=== PATIENT | male | born 1970 | race Caucasian/White ===

== ENCOUNTER 2023-10-24 15:34 | Outpatient (REF) | payer BC, SELFPAY ==
[2023-10-24 18:44] LABS: Fentanyl, urine Not Detected (Not Detect)
== END 2023-10-24 15:35 | disposition home or self-care (01) ==
LOC: CF 15:34
PROVIDERS: PCP Internal Medicine; Visit Provider Nurse Practitioner Psychiatric/Mental Health
DX: F11.20 Opioid dependence, uncomplicated (principal)
CPT/HCPCS: 80305; 80307

== ENCOUNTER 2023-10-24 15:34 | Outpatient (AMB) | payer BC, SELFPAY ==
--- NOTE | 2023-10-24 15:46 | A.OFFVISCC_ITS ---
Intake Visit Reasons: Intake Allergies No Known Allergies Allergy (Verified 10/24/23 15:56) HPI HPI Intake: Details: Patient presents as a walk in for evaluation and treatment of OUD He reports that he was recently randomly drug tested at work and opiate screen was positive, which resulted in him being put on leave to address substance use GERRY history: -previous history of AUD no ETOH for 3 years -denies any history of overdose -oxycodone use started 2 years ago recreational- no history of injury or prescription for medication -50mg througout the day -10mg tabs -no cocaine, no benzos *Reports tryingto stop several times, but withdrawal sx made it challenging -reports restless legs and shoulder are main withdrawal sx -no history of treatment Medical History: -DMII -reflux Denies any BH history Limited understanding of OUD and treatment options Not interested in admission for medically supervised withdrawal tx Discussed treatment options including MOUD--agreeable to buprenorphine trial Verbalizing desire to get off as soon as possible encouraged patient to allow for at lest one month of treatment before making any decisions Presenting as guarded and initially challenging to illicit information as an swers were vague and responses terse--patient endorsing embarrassment that he is in this position Discussed narcan--emphatically declines taking any home. need to obtain med list and confirm lantus humalog type 2 prilosec nkda Review of Systems Const Reports as per HPI and Reports difficulty sleeping (without oxycodone ) Physical Exam Const General: cooperative, healthy appearing and well groomed Nutritional Appearance: average body habitus Orientation/consciousness: patient oriented x3 Limitations: no limitations Neuro General: patient oriented x3 Psych Appearance: well kempt Affect: normal affect and Indifferent affect present (at times ) Attitude: Guarded attititude/behavior present Thought process: Normal thought process present Thought content: Normal thought content present Insight: Fair insight present (Psych) Judgement: Fair judgement present (Psych) Results AMB 14 Panel Urine Drug Screen Urine Marijuana (THC) Negative Last Edit by Myra Moore on 10/24/23 15 :53 Urine Cocaine Negative Last Edit by Myra Moore on 10/24/23 15:53 Urine Morphine Negative Last Edit by Myra Moore on 10/24/23 15:53 Urine Methamphetamine Negative Last Edit by Myra Moore on 10/24/23 15 :53 Urine Amphetamine Negative Last Edit by Myra Moore on 10/24/23 15:53 Urine Benzodiazepine Negative Last Edit by Myra Moore on 10/24/23 15: 53 Urine Barbiturates Negative Last Edit by Myra Moore on 10/24/23 15:53 Urine Methadone Negative Last Edit by Myra Moore on 10/24/23 15:53 Urine Buprenorphine Negative Last Edit by Myra Moore on 10/24/23 15:5 3 Urine Tricyclic Antidepressant Negative Last Edit by Myra Moore on 10/24/23 15:53 Urine MDMA Negative Last Edit by Myra Moore on 10/24/23 15:53 Urine Oxycodone Positive Last Edit by Myra Moore on 10/24/23 15:53 Urine Phencyclidine Negative Last Edit by Myra Moore on 10/24/23 15:5 3 Urine Propoxyphene Negative Last Edit by Myra Moore on 10/24/23 15:53 Results Reviewed Results Reviewed: Laboratory Last Values POC Urine Buprenorphine Negative 10/24/23 15:51 POC Urine Morphine Negative 10/24/23 15:51 POC Urine Oxycodone Positive 10/24/23 15:51 POC Urine Methadone Negative 10/24/23 15:51 POC Urine Propoxyphene Negative 10/24/23 15:51 POC Urine Barbiturates Negative 10/24/23 15:51 POC U Tricyclic Antidpr Negative 10/24/23 15:51 POC Urine PCP Negative 10/24/23 15:51 POC Ur Amphetamines Negative 10/24/23 15:51 POC Ur Methamphetamine Negative 10/24/23 15:51 POC Urine MDMA Negative 10/24/23 15:51 POC Ur Benzodiazepine Negative 10/24/23 15:51 POC Urine Cocaine Negative 10/24/23 15:51 POC Ur Marijuana (THC) Negative 10/24/23 15:51 Assessment & Plan Assessment & Plan (1) Opioid use disorder: Code(s): F11.90 - Opioid use, unspecified, uncomplicated Category: Medical Plan: * suboxone induction reviewed and provided in writing * discussed risk of precipitated withdrawal * tizanidine PRN for muscle spasms * emphatically declined narcan * overdose prevention discussion * patient to call on Saturday to follow up Orders: Orders AMB 14 Panel Urine Drug Screen 10/24/23 Z51.81 - Encounter for therapeutic drug level monitoring Fentanyl, urine 10/24/23 F11.90 - Opioid use, unspecified, uncomplicated Medications: New buprenorphine-naloxone 4-1 mg (Suboxone) 1 film sublingual TID 30 ea 0RF tizanidine 4 mg PO BID PRN 10 caps 0RF muscle spasticity
== END 2023-10-24 16:29 | disposition home or self-care (01) ==
PROVIDERS: PCP Internal Medicine; Visit Provider Nurse Practitioner Psychiatric/Mental Health
DX: F11.90 Opioid use, unspecified, uncomplicated (principal)
CPT/HCPCS: 99204

== ENCOUNTER 2023-11-20 13:35 | Outpatient (AMB) | payer BC, SELFPAY ==
--- NOTE | 2023-11-20 13:48 | A.OFFVISCC_ITS ---
Intake Visit Reasons: MAT Allergies No Known Allergies Allergy (Verified 10/24/23 15:56) HPI HPI MAT: Details: Patient presents for follow up Reporting 4 weeks no oxy 3 weeks no suboxone reporting terrible sleep--restless. tizanidine not helpful Denies cravings Review of Systems Const Reports as per HPI Physical Exam Const General: cooperative, healthy appearing and well groomed Nutritional Appearance: average body habitus Orientation/consciousness: patient oriented x3 Limitations: no limitations Neuro General: patient oriented x3 Assessment & Plan Assessment & Plan (1) Opioid use disorder: Code(s): F11.90 - Opioid use, unspecified, uncomplicated Category: Medical Plan: * trial baclofen 10mg QHS Medications: New baclofen 10 mg PO BEDTIME 10 tabs 0RF Discontinued tizanidine Discontinued Reason: Patient Completed Course 4 mg PO BID PRN 10 caps 0RF muscle spasticity buprenorphine-naloxone 8-2 mg Discontinued Reason: Patient Completed Course 1 film sublingual BID 60 ea 0RF
== END 2023-11-20 14:12 | disposition home or self-care (01) ==
PROVIDERS: PCP Internal Medicine; Visit Provider Nurse Practitioner Psychiatric/Mental Health
DX: F11.90 Opioid use, unspecified, uncomplicated (principal)
CPT/HCPCS: 99214

== ENCOUNTER → 2023-11-20 13:35 | Outpatient (BNVA) | payer BC, SELFPAY | PROVIDERS: PCP Internal Medicine; Visit Provider Nurse Practitioner Psychiatric/Mental Health ==

== ENCOUNTER 2023-12-04 12:53 | Outpatient (AMB) | payer BC, SELFPAY ==
--- NOTE | 2023-12-04 12:54 | A.OFFVISCC_ITS ---
Intake Visit Reasons: MAT Tele Allergies No Known Allergies Allergy (Verified 10/24/23 15:56) HPI HPI MAT Tele: Details: Patient presents for follow up via telehealth Still no bup or oxycodone Baclofen has been effective in managing restlessness and allowing patient to sleep Discussed taking for at least a month then tapering off patient agreeable reports he is back to work and very happy about this Review of Systems Const Reports as per HPI and Reports no additional complaints Telehealth Telehealth Telehealth Platform: Telephone Location of provider rendering services: practice address Location of patient: address on file Patient Identification confirmed using: Name, : Yes Telehealth method: voice only Patient verbally consented to treatment: Yes Patient verbally consented to billing insurance company: Yes Minutes spent on Phone/Video with Pt.: 15 Assessment & Plan Assessment & Plan (1) Opioid use disorder: Code(s): F11.90 - Opioid use, unspecified, uncomplicated Category: Medical Plan: * continue baclofen 10mg QHS * follow up in 6 weeks Medications: Refilled baclofen 10 mg PO BEDTIME 30 tabs 2RF
== END 2023-12-04 14:04 | disposition home or self-care (01) ==
PROVIDERS: PCP Internal Medicine; Visit Provider Nurse Practitioner Psychiatric/Mental Health
DX: F11.90 Opioid use, unspecified, uncomplicated (principal)
CPT/HCPCS: 99213

== ENCOUNTER → 2023-12-04 12:53 | Outpatient (BNVA) | payer BC, SELFPAY | PROVIDERS: PCP Internal Medicine; Visit Provider Nurse Practitioner Psychiatric/Mental Health ==